=== PATIENT | female | born 1995 ===

== ENCOUNTER 2017-10-21 17:28 | Emergency (ER) | payer SELFPAY ==
[~2017-10-21] VITALS: Ht 157.5 cm; Wt 92.7 kg
[2017-10-21 17:33] VITALS: TEMP 36.9; Ht 157.5 cm; Wt 92.7 kg
[2017-10-21] MEDS ORDERED: PROPARACAINE HCL 0.5% OP SOLN 15 ML BTL OP STA (17:37)
[2017-10-21 18:42] VITALS: BP 116/70; PULSE 84; O2SAT 100
[2017-10-21] MEDS ORDERED: CIPROFLOXACIN HCL 0.3% OP SOLN 2.5 ML BTL OP ONE (18:45)
--- NOTE | 2017-10-22 17:45 | EMERGENCY ROOM VISIT NOTE ---
History First contact with patient: 17:37 Chief Complaint: EYE ASSESSMENT Stated Complaint: PERFUME SPLASHED INTO MY RT EYE, BURNING History of Present Illness The patient is a 22 year old female who presents to the Emergency Room with complaints of chemical exposure to her right eye. The patient was shopping at a department store about one hour ago, and was smelling perfume. She evidently twisted the top off a perfume bottle, and this caused a splattering of the perfume into her right eye and face. She had immediate burning and discomfort of the right eye. She was able to flush the eye with water for around 15 minutes at the store. She now presents to the ER for evaluation. The patient does not have significant reduction of vision. She does not wear contact lenses , but did have Lasix eye surgery a few years ago. She does not have discomfort in the left eye and rates her overall discomfort a 2/10. Her tetanus is reportedly up-to-date. Review of Systems More than 10 systems were reviewed and otherwise negative with the exception of history of present illness. Past Medical/Surgical History No chronic medical disease Family History No pertinent family history Social History Smoking Status: Never Smoker Housing Status: lives with family Current/Historical Medications No Active Prescriptions or Reported Meds Physical Exam Vital Signs Date Time Temp Pulse Resp B/P (MAP) Pulse Ox O2 Delivery O2 Flow Rate FiO2 10/21/17 18:42 84 16 116/70 100 10/21/17 17:33 36.9 98 18 124/70 99 Room Air Right Eye Acuity: 20/50 Left Eye Acuity: 20/20 Physical Exam VITALS: Vitals are noted on the nurse's note and reviewed by myself. Vital signs stable. GENERAL: Well-developed, well-nourished, female, who is in no acute distress and resting comfortably. Patient is cooperative with the examination. EYES: Pupils equal round and reactive to light and accommodation. Right conjunctiva is mildly injected. Left conjunctiva normal. Visual acuity as above. Slit lamp examination does not reveal evidence of foreign body. Fluorescein exam reveals very minimal anterior corneal irritation but no distinct laceration or ulceration. There does not appear to be any penetrating globe injury or significant chemical burn. No chemosis or sloughing of the cornea. HEART: Regular rate and rhythm without murmurs gallops or rubs. LUNGS: Clear to auscultation bilaterally without wheezes, rales or rhonchi. No retractions or accessory muscle use. Medical Decision & Procedures Medications Administered Medications (Trade) Dose Ordered Sig/Keira Route Start Time Stop Time Status Last Admin Dose Admin Ciprofloxacin HCl (Ciprofloxacin 0.3% Op Soln) 2 drops NOW ONCE OP 10/21/17 18:45 10/21/17 18:46 DC 10/21/17 18:42 2 DROPS ED Course Physical exam and history were performed. Nursing notes, EMR, and Medication List were personally reviewed. Patient appears to have suffered a chemical exposure to the right eye with perfume. On examination there is some irritation of the front of the right eye but no distinct uptake of fluorescein. I discussed care with the [facility], who recommended irrigation. A Jame lens was placed, and the eye was irrigated for roughly 20 minutes here in the department. The patient did tolerate this well. Repeat exam showed some improvement of her injection. Overall the patient appears well for discharge home. I will give her a short course of antibiotic eyedrops to help prevent any infection as she did previously have Lasix. The patient is to follow with primary care physician or eye doctor for ongoing care. She was otherwise invited back to the ER with any new, worsening, or concerning symptoms. The chart was completed utilizing [facility] Speech Voice Recognition Software. Grammatical errors, random word insertions, pronoun errors, and incomplete sentences are an occasional consequence of this system due to software limitations, ambient noise, and hardware issues. Any formal questions or concerns about the content, text, or information contained within the body of this dictation should be directly addressed to the provider for clarification. . Medical Decision Differential diagnosis includes, but is not limited to: Foreign body, abrasion, laceration, chemical burn, globe injury, and others Impression Primary Impression: Chemical exposure of eye Departure Information Dispostion Home / Self-Care Condition GOOD Prescriptions No Active Prescriptions or Reported Meds Forms HOME CARE DOCUMENTATION FORM, IMPORTANT VISIT INFORMATION Patient Instructions My [facility] Additional Instructions You were seen and evaluated today on an emergency basis only. This is not a substitute for, or an effort to provide, complete comprehensive medical care. It is not possible to recognize and treat all injuries or illnesses in a single emergency department visit. For this reason it is recommended that you followup with your primary care physician or eye doctor next week if symptoms persist. Use Ciloxan Eye Drops: Instill 1-2 drops into the conjunctival sac every 2 hours while awake for 2 days and 1-2 drops every 4 hours while awake for the next 5 days You are welcome to return to the emergency department anytime with new, worsening, or concerning symptoms.
== END 2017-10-21 18:43 | disposition home or self-care (01) ==
LOC: C.EDB 17:31 → C.EDD 18:43
DX: T65.891A Toxic effect of other specified substances, accidental (unintentional), initial encounter (principal); X58.XXXA Exposure to other specified factors, initial encounter; Y92.512 Supermarket, store or market as the place of occurrence of the external cause

== ENCOUNTER 2017-10-31 23:35 | Emergency (ER) | payer OTHER ==
[~2017-10-31] VITALS: Ht 157.5 cm; Wt 93.6 kg
[2017-10-31 23:42] VITALS: TEMP 36.9; Ht 157.5 cm; Wt 93.6 kg
--- NOTE | 2017-10-31 23:55 | EMERGENCY ROOM VISIT NOTE ---
History Report prepared by Jose Luisibelizabeth: Hilaria Bowden Under the Supervision of: Dr. Inderjit Garcia D.O. First contact with patient: 23:45 Chief Complaint: DIZZY Stated Complaint: DIZZY History of Present Illness The patient is a 22 year old female who presents to the Emergency Room with complaints of persistent dizziness for the past 1 hour. She states "I feel like I'm falling". She reports she ate shrimp and calamari at [employer] prior to arrival this evening. She denies any chest pain or shortness of breath. She denies any itching or rashes but states she feels "numbness in my jaw" and reports her hands feel cold. She has also had some diarrhea. The patient believes she has experienced these symptoms after eating seafood in the past. Her notes she has had elevated triglyceride levels in the past. Source of History: patient Onset: 1 hour [employer] Position: other (global) Timing: other (persistent) Associated Symptoms: + diarrhea, + numbness (in jaw), No chest pain, No SOB , No rash Review of Systems See HPI for pertinent positives and negatives. A total of ten systems were reviewed and were otherwise negative. Past Medical & Surgical Medical Problems: (1) High blood triglycerides Social History Smoking Status: Never Smoker Alcohol Use: occasionally Drug Use: none Marital Status: Housing Status: lives with family Occupation Status: employed Current/Historical Medications No Active Prescriptions or Reported Meds Allergies Coded Allergies: No Known Allergies (Unverified , 11/01/17) Physical Exam Vital Signs Date Time Temp Pulse Resp B/P (MAP) Pulse Ox O2 Delivery O2 Flow Rate FiO2 11/01/17 00:29 100 10/31/17 23:42 36.9 125 18 141/82 99 Room Air Physical Exam GENERAL: Awake, alert, well-appearing, in no distress HENT: Normocephalic, atraumatic. Oropharynx unremarkable. EYES: Normal conjunctiva. Sclera non-icteric. NECK: Supple. No nuchal rigidity. FROM. No JVD. RESPIRATORY: Clear to auscultation. CARDIAC: Regular rate, normal rhythm. Extremities warm and well perfused. Pulses equal. ABDOMEN: Soft, non-distended. No tenderness to palpation. No rebound or guarding. No masses. RECTAL: Deferred. MUSCULOSKELETAL: Chest examination reveals no tenderness. The back is symmetrical on inspection without obvious abnormality. There is no CVA tenderness to palpation. No joint edema. LOWER EXTREMITIES: Calves are equal size bilaterally and non-tender. No edema. No discoloration. NEURO: Normal sensorium. No sensory or motor deficits noted. SKIN: No rash or jaundice noted. PSYCHIATRIC: Anxious Medical Decision & Procedures Medications Administered Medications (Trade) Dose Ordered Sig/Keira Route Start Time Stop Time Status Last Admin Dose Admin Diphenhydramine HCl (Benadryl Cap) 25 mg NOW STAT PO 10/31/17 23:52 10/31/17 23:53 DC 11/01/17 00:07 25 MG Famotidine (Pepcid Tab) 20 mg NOW ONCE PO 11/01/17 00:00 11/01/17 00:01 DC 11/01/17 00:07 20 MG ED Course 2346: The patient was evaluated in room A10. A complete history and physical exam was performed. 2352: Benadryl 25 mg PO. 0000: Pepcid 20 mg PO. 0040: I reevaluated the patient. She is feeling well and resting comfortably. I discussed her results and discharge instructions and she verbalized complete understanding and agreement. Medical Decision The differential diagnoses considered include allergic reaction, anxiety and panic attack. Patient after taking Benadryl and Pepcid feels much improved she initially stated that her hands and feet were cold. On reexamination her hands and feet are nice and warm and she is neurovascularly intact in the hands and feet. She states she is much improved she is smiling this could be a reaction to shellfish or this could be an anxiety presentation. Medication Reconcilliation Current Medication List: was personally reviewed by me Blood Pressure Screening Patient's blood pressure: Elevated blood pressure Blood pressure disposition: Elevated BP felt to be situational Impression Primary Impression: Allergic reaction Additional Impression: Anxiety Scribe Attestation The scribe's documentation has been prepared under my direction and personally reviewed by me in its entirety. I confirm that the note above accurately reflects all work, treatment, procedures, and medical decision making performed by me. Departure Information Dispostion Home / Self-Care Prescriptions No Active Prescriptions or Reported Meds Referrals No Doctor, Assigned (PCP) Patient Instructions ED Allergic Reaction General Other, My [facility] Health Problem Qualifiers
[2017-11-01] MEDS ORDERED: FAMOTIDINE 20 MG TAB PO ONE
[2017-11-01 01:04] VITALS: BP 115/77; PULSE 97; O2SAT 98
== END 2017-11-01 01:04 | disposition home or self-care (01) ==
LOC: C.EDB 23:36 → C.EDA 11-01 01:04
DX: T78.40XA Allergy, unspecified, initial encounter (principal); F41.9 Anxiety disorder, unspecified; R42 Dizziness and giddiness; R19.7 Diarrhea, unspecified; R20.0 Anesthesia of skin; X58.XXXA Exposure to other specified factors, initial encounter

== ENCOUNTER 2018-02-20 06:01 | Emergency (ER) | payer OTHER ==
[~2018-02-20] VITALS: Ht 157.5 cm; Wt 94.0 kg
[2018-02-20 06:04] VITALS: TEMP 36.8; Ht 157.5 cm; Wt 94.0 kg
[2018-02-20] MEDS ORDERED: PROP20TA67 PO (07:02)
[2018-02-20 07:03] LABS: BASO % 0.1 %; BASO ABS # 0.01 K/uL (0-0.2); EOS % 1.8 %; EOS ABS # 0.15 K/uL (0-0.5); HEMATOCRIT 45.6 % (37-47); HEMOGLOBIN 15.9 g/dL (12.0-16.0); IG# 0.03 K/uL (0.00-0.02); LYMPH % 36.1 %; LYMPH ABS # 3.06 K/uL (1.2-3.4); MEAN CELL VOLUME 81.3 fL (80-100); MEAN CORPUSCULAR HEMOGLOBIN 28.3 pg (25-34); MEAN CORPUSCULAR HGB CONC 34.9 g/dl (32-36); MEAN PLATELET VOLUME 9.7 fL (7.4-10.4); MONO % 4.8 %; MONO ABS # 0.41 K/uL (0.11-0.59); NEUT % 56.8 %; NEUT ABS # 4.81 K/uL (1.4-6.5); PLATELET COUNT 300 K/uL (130-400); RED CELL DISTRIBUTION WIDTH CV 12.7 % (11.5-14.5); WHITE BLOOD COUNT 8.47 K/uL (4.8-10.8)
--- NOTE | 2018-02-20 07:09 | DIAGNOSTIC IMAGING REPORT ---
CHEST ONE VIEW PORTABLE CLINICAL HISTORY: EVALUATE ALTERED MENTAL STATUS/WEAKNESS dyspnea COMPARISON STUDY: No previous studies for comparison. FINDINGS: The bones soft tissues and hemidiaphragms are normal. The cardiomediastinal silhouette is normal. The lungs are clear. The pulmonary vasculature is normal. IMPRESSION: Negative chest. The above report was generated using voice recognition software. It may contain grammatical, syntax or spelling errors. Electronically signed by: James Trujillo M.D. 02/20/2018 7:08 AM Dictated Date/Time: 02/20/2018 7:08 AM
[2018-02-20 07:24] LABS: ALBUMIN 3.8 gm/dl (3.4-5.0); CALCIUM 9.1 mg/dl (8.5-10.1); CREATININE 0.75 mg/dl (0.60-1.20); POTASSIUM 3.7 mmol/L (3.5-5.1)
--- NOTE | 2018-02-20 07:27 | DIAGNOSTIC IMAGING REPORT ---
HEAD WITHOUT CONTRAST (CT) CT DOSE: 537.48 mGy.cm HISTORY: Mental status change EVALUATE ALTERED MENTAL STATUS/WEAKNESS TECHNIQUE: Multiaxial CT images of the head were performed without the use of intravenous contrast. A dose lowering technique was utilized adhering to the principles of ALARA. Comparison: None. Findings: The paranasal sinuses and mastoid air cells are clear. The calvarium and skull base are intact. The ventricles and sulci are within normal limits. There is no mass, hematoma, midline shift, or acute infarct. Impression: No acute intracranial abnormality. The above report was generated using voice recognition software. It may contain grammatical, syntax or spelling errors. Electronically signed by: James Trujillo M.D. 02/20/2018 7:26 AM Dictated Date/Time: 02/20/2018 7:25 AM
[2018-02-20 07:29] LABS: CKMB 1.3 ng/ml (0.5-3.6); TOTAL PROTEIN 7.8 gm/dl (6.4-8.2)
--- NOTE | 2018-02-20 08:02 | EMERGENCY ROOM VISIT NOTE ---
History Report prepared by Jeremy: Zachary Suárez Under the Supervision of: Dr. Benjamin Berman D.O. First contact with patient: 06:40 Chief Complaint: NEURO SYMPTOMS Stated Complaint: FEELING LIGHTNESS/NUMBNESS AT TOP OF HEAD Nursing Triage Summary: facial tingling and head tingling patient states that she does feel anxious states that she is not on medicaiton for her overactive thyroid History of Present Illness The patient is a 22 year old female who presents to the Emergency Room with complaints of intermittent head and neck tingling that began 4.5 hours ago. She describes this sensation as needles in her head with her episodes lasting 10 seconds. She states that she feels anxious. She is currently not taking medication for her overactive thyroid that was diagnosed 1 month ago because her doctor did not prescribe anything for it. She states that she has had this episode once before. Per her , Dr. Kenny performed blood work 1 month ago. Source of History: patient Onset: 4.5 hours ago Position: head, neck Symptom Intensity: pain rated as 0/10 Quality: tingling Timing: intermittent Associated Symptoms: + headache Review of Systems See HPI for pertinent positives & negatives. A total of 10 systems reviewed and were otherwise negative. Past Medical & Surgical Medical Problems: (1) High blood triglycerides Family History FHx: stroke Social History Smoking Status: Never Smoker Alcohol Use: occasionally Drug Use: none Marital Status: Housing Status: lives with family Occupation Status: employed Current/Historical Medications Scheduled Propranolol (Inderal), 20 MG PO DAILY Allergies Coded Allergies: Iodine (Unverified Adverse Reaction, Severe, HBP/ANXIOUS, 02/20/18) Physical Exam Vital Signs Date Time Temp Pulse Resp B/P (MAP) Pulse Ox O2 Delivery O2 Flow Rate FiO2 02/20/18 08:13 88 18 111/174 100 Room Air 02/20/18 06:04 36.8 80 18 142/81 100 Room Air Physical Exam VITAL SIGNS: were reviewed as above. GENERAL:Non-toxic in appearance. SKIN: Warm dry and pink. HEAD: Normocephalic and atraumatic. OROPHARYNX: Is clear and moist NECK: Supple without lymphadenopathy or meningismus. LUNGS: clear. HEART: Regular rate and rhythm. ABDOMEN: Soft and nontender. EXTREMITIES: Warm and well perfused. NEUROLOGICALLY: Awake alert and oriented without focal deficit. Cranial nerves 2 -12 are intact. There is no pronator drift. Cerebellar testing is within normal limits. There is no nystagmus. There is no facial droop. Speech is clear. Vision is grossly normal. MUSCULOSKELETAL: Good muscle tone. No evidence of trauma. Medical Decision & Procedures ER Provider Diagnostic Interpretation: Radiology results as stated below per my review and radiologist interpretation: CHEST ONE VIEW PORTABLE CLINICAL HISTORY: EVALUATE ALTERED MENTAL STATUS/WEAKNESS dyspnea COMPARISON STUDY: No previous studies for comparison. FINDINGS: The bones soft tissues and hemidiaphragms are normal. The cardiomediastinal silhouette is normal. The lungs are clear. The pulmonary vasculature is normal. IMPRESSION: Negative chest. The above report was generated using voice recognition software. It may contain grammatical, syntax or spelling errors. Electronically signed by: James Trujillo M.D. 02/20/2018 7:08 AM Dictated Date/Time: 02/20/2018 7:08 AM HEAD WITHOUT CONTRAST (CT) CT DOSE: 537.48 mGy.cm HISTORY: Mental status change EVALUATE ALTERED MENTAL STATUS/WEAKNESS TECHNIQUE: Multiaxial CT images of the head were performed without the use of intravenous contrast. A dose lowering technique was utilized adhering to the principles of ALARA. Comparison: None. Findings: The paranasal sinuses and mastoid air cells are clear. The calvarium and skull base are intact. The ventricles and sulci are within normal limits. There is no mass, hematoma, midline shift, or acute infarct. Impression: No acute intracranial abnormality. The above report was generated using voice recognition software. It may contain grammatical, syntax or spelling errors. Electronically signed by: James Trujillo M.D. 02/20/2018 7:26 AM Dictated Date/Time: 02/20/2018 7:25 AM Laboratory Results 02/20/18 06:55 Red Blood Count 5.61, Mean Corpuscular Volume 81.3, Mean Corpuscular Hemoglobin 28.3, Mean Corpuscular Hemoglobin Concent 34.9, Mean Platelet Volume 9.7, Neutrophils (%) (Auto) 56.8, Lymphocytes (%) (Auto) 36.1, Monocytes (%) (Auto) 4.8, Eosinophils (%) (Auto) 1.8, Basophils (%) (Auto) 0.1, Neutrophils # (Auto) 4.81, Lymphocytes # (Auto) 3.06, Monocytes # (Auto) 0.41, Eosinophils # (Auto) 0.15, Basophils # (Auto) 0.01 02/20/18 06:55 Test 02/20/18 06:55 White Blood Count 8.47 K/uL (4.8-10.8) Red Blood Count 5.61 M/uL (4.2-5.4) Hemoglobin 15.9 g/dL (12.0-16.0) Hematocrit 45.6 % (37-47) Mean Corpuscular Volume 81.3 fL (80-100) Mean Corpuscular Hemoglobin 28.3 pg (25-34) Mean Corpuscular Hemoglobin Concent 34.9 g/dl (32-36) Platelet Count 300 K/uL (130-400) Mean Platelet Volume 9.7 fL (7.4-10.4) Neutrophils (%) (Auto) 56.8 % Lymphocytes (%) (Auto) 36.1 % Monocytes (%) (Auto) 4.8 % Eosinophils (%) (Auto) 1.8 % Basophils (%) (Auto) 0.1 % Neutrophils # (Auto) 4.81 K/uL (1.4-6.5) Lymphocytes # (Auto) 3.06 K/uL (1.2-3.4) Monocytes # (Auto) 0.41 K/uL (0.11-0.59) Eosinophils # (Auto) 0.15 K/uL (0-0.5) Basophils # (Auto) 0.01 K/uL (0-0.2) RDW Standard Deviation 37.0 fL (36.4-46.3) RDW Coefficient of Variation 12.7 % (11.5-14.5) Immature Granulocyte % (Auto) 0.4 % Immature Granulocyte # (Auto) 0.03 K/uL (0.00-0.02) Prothrombin Time 10.1 SECONDS (9.0-12.0) Prothromb Time International Ratio 1.0 (0.9-1.1) Anion Gap 7.0 mmol/L (3-11) Est Creatinine Clear Calc Drug Dose 123.6 ml/min Estimated GFR () 129.3 Estimated GFR (Non- 111.6 BUN/Creatinine Ratio 8.0 (10-20) Calcium Level 9.1 mg/dl (8.5-10.1) Magnesium Level 2.0 mg/dl (1.8-2.4) Total Bilirubin 0.6 mg/dl (0.2-1) Direct Bilirubin 0.1 mg/dl (0-0.2) Aspartate Amino Transf (AST/SGOT) 17 U/L (15-37) Alanine Aminotransferase (ALT/SGPT) 33 U/L (12-78) Alkaline Phosphatase 91 U/L (45-117) Total Creatine Kinase 65 U/L (26-192) Creatine Kinase MB 1.3 ng/ml (0.5-3.6) Creatine Kinase MB Ratio 2.0 (0-3.0) Total Protein 7.8 gm/dl (6.4-8.2) Albumin 3.8 gm/dl (3.4-5.0) Laboratory results as stated above per my review. ECG Per My Interpretation Indication: other (headache) Rate (beats per minute): 80 Rhythm: normal sinus Findings: no ectopy, other (No ST elevation) ED Course 0640: Previous medical records were reviewed. The patient was evaluated in room B9. A complete history and physical examination was performed. 0800: On reevaluation, the patient is doing well. I discussed the results and findings with the patient. She verbalized agreement of the treatment plan. She was discharged home. Medical Decision Differential includes: Acute intracranial bleed, trauma, meningitis, encephalitis, increased intracranial pressure, mass or mass effect, facial or dental infection, temporal arteritis, CVA, TIA, acute hypertensive emergency, sinusitis, carbon monoxide exposure. This is a 22-year-old female who presents to the ED with a chief complaint of a needles type sensation in the top of her head. The patient states that her symptoms started around 2 AM. She has had 4 or 5 episodes of this needle type sensation in the top of her head that lasted for about 10 seconds apiece. Further details listed above. The patient's vital signs here are normal. A neurological exam is normal. Her physical exam was unremarkable. She is in no distress. The patient has a CT scan of the brain that is negative for acute disease. Chest x-ray was negative for acute disease. CBC and complete metabolic panel were normal. The patient was told the results of the test. The patient is felt to be stable for discharge and outpatient follow-up. The exact cause of her symptoms are unclear but there does not appear to be an emergent issue at this time based on her test results and clinical exam. Medication Reconcilliation Current Medication List: was personally reviewed by me Blood Pressure Screening Patient's blood pressure: Elevated blood pressure Blood pressure disposition: Elevated BP felt to be situational Impression Primary Impression: Paresthesia Scribe Attestation The scribe's documentation has been prepared under my direction and personally reviewed by me in its entirety. I confirm that the note above accurately reflects all work, treatment, procedures, and medical decision making performed by me. Departure Information Dispostion Home / Self-Care Referrals No Doctor, Assigned (PCP) Patient Instructions My [facility] Additional Instructions Your blood work and CT scan of the head today did not show any abnormalities. Recommend follow-up with your family doctor for recheck. Return to the emergency department for worsening or new symptoms or any concerns. You have been examined and treated today on an emergency basis only. This is not a substitute for, or an effort to provide, complete comprehensive medical care. It is impossible to recognize and treat all injuries or illnesses in a single emergency department visit. It is therefore important that you follow up closely with your doctor. Call as soon as possible for an appointment.
[2018-02-20 08:13] VITALS: BP 111/174; PULSE 88; O2SAT 100
== END 2018-02-20 08:18 | disposition home or self-care (01) ==
LOC: C.EDB 06:03
DX: R20.2 Paresthesia of skin (principal); Z82.3 Family history of stroke; Z79.899 Other long term (current) drug therapy